=== PATIENT | female | born 1955 | race Caucasian/White ===

== ENCOUNTER → 2019-01-11 | Outpatient (CLI) | payer OTHER ==
--- NOTE | 2019-01-11 15:51 | CT ---
Procedure: CT LUNG SCREENING Exam Date: 01/11/2019 Ordering Provider: Ino Cabello Clinical Indication: HISTORY OF TOBACCO USE 80 pack years. Quit smoking 3 years ago. This patient meets eligibility criteria for low-dose CT lung cancer screening. Comparison: None. Technique: Using a multislice scanner, sequential helical axial imaging was obtained in the thorax, 2.5 mm thickness, 2.5 mm separation, from the level of the thoracic inlet through the lung bases without IV contrast. A low dose protocol was utilized: CTDI: 1.76 mGy. 120. kVp. 45 mA. 2D sagittal and coronal reconstructed images, 6.0 mm thickness, were obtained. This exam was performed according to our departmental dose optimization program which includes use of automated exposure control, adjustment of the mA and/or kV according to patient size and/or use of iterative reconstruction technique. Nodule measurements under 10 mm are given as mean value of 3 axes diameters. FINDINGS: Lungs and large airways: Multiple bilateral parenchymal blebs in a centrilobular pattern. Less prevalent in the lower lobes. Nodule 3 mm calcified subpleural posterior left apex. 4 mm groundglass density associated with the medial right horizontal fissure. Dependent atelectasis in the right base. Pleural parenchymal scarring densities abutting the left hemidiaphragm. Bilateral prominent anterior epicardial fat pads. Pleura and space: Focal pleural thickening posterior left abutting the upper lobe. No effusion or pneumothorax bilaterally. Mediastinum and malka: evaluation limited by low dose technique and lack of IV contrast. No abnormally enlarged lymph nodes or gross soft tissue masses or fluid/air. Heart and great vessels: Coronary artery calcifications. Atherosclerotic calcification descending thoracic aorta. Chest wall, lower neck, axillae: Evaluation also limited by same factors as described above. Normal size nodes. No soft tissue masses. Upper abdomen: No free air air or fluid in the included peritoneal space. No fatty stranding. Normal size and density of the adrenal glands and normal size of the spleen with calcified granulomas. Right lobe of the liver appears enlarged. Osseous structures: Evaluation limited by low dose MIP technique. Prior ACDF multiple levels. Minimal thoracic spondylosis. Minimal depression of the anterior L1 endplate. Depression of the central and anterior T11 endplate. Arthrosis of the junction of the manubrium and sternum. No lytic or blastic lesions. Minimal arthrosis right glenohumeral joint. IMPRESSION: 1. Calcified granuloma left upper lobe. Groundglass nodule associated with right horizontal fissure abutting the upper lobe. Emphysematous changes centrilobular type in more prevalent in the upper lobes than the lower lobes. No abnormal nodule. No mass. No focal infiltrate. [facility] Best Practice recommendations:. Please see below for Lung RADS category and FOLLOW-UP.* *Lung RADS category Category 1S - No nodule or definitely benign nodules (probability of malignancy less than 1%). Follow-up: Continue annual screening with Low Dose Chest CT in 12 months. 2. Enlarged liver. Consider follow-up abdominal ultrasound. Lung RADS Modifier S - Clinically Significant or Potentially Clinically Significant Findings (non lung cancer). Electronically signed by: Milo Loya MD 01/11/2019 3:48 PM [facility]
== END ==
LOC: CT 10:04
PROVIDERS: ATTEND Family Medicine
DX: Z87.891 Personal history of nicotine dependence (principal); R91.1 Solitary pulmonary nodule

== ENCOUNTER → 2020-03-19 | Outpatient (CLI) | payer OTHER ==
--- NOTE | 2020-03-20 11:09 | CT ---
Procedure: CT LUNG SCREENING Exam Date: 19 March 2020. Ordering Provider: Ino Cabello Clinical Indication: PERSONAL HISTORY OF TOBACCO USE . 4 year cigarette smoking cessation. 50 pack-years. This patient meets eligibility criteria for low-dose CT lung cancer screening. Comparison: Low-dose CT lung cancer screening examination December 2018. Technique: Using a multislice scanner, sequential helical axial imaging was obtained in the thorax, 2.5 mm thickness, 2.5 mm separation, from the level of the thoracic inlet through the lung bases without IV contrast. A low dose protocol was utilized for BMI less than 30: BMI: 29.6. CTDI: 1.76 mGy. 120. kVp. 45 mA. DLP 66 mGy-cm. 2D sagittal and coronal reconstructed images, 6.0 mm thickness, were obtained. This exam was performed according to our departmental dose optimization program which includes use of automated exposure control, adjustment of the mA and/or kV according to patient size and/or use of iterative reconstruction technique. Nodule measurements under 10 mm are given as mean value of 3 axes diameters. FINDINGS: Lungs and large airways: Interval development of density in the subpleural inferior lingula abutting the posterior major fissure with a nodular density measuring 5.2 mm on axial series 2/image 69. Also adjacent pleural parenchymal scarring. Calcified nodule posterior left apex stable. Bilateral small blebs in a centrilobular pattern more prevalent in the upper lung carney with no interval change. Tree-in-bud densities new in the posterior recesses of the bilateral lower lobes, more prominent on the left. Pleural parenchymal scarring left lower lobe. No other nodules and no masses. Pleura and space: Negative. Mediastinum and malka: evaluation limited by low dose technique and lack of IV contrast. Small lymph nodes are stable but no dominant solid mass. Heart and great vessels: Atherosclerotic calcifications in the thoracic aorta with minimal coronary artery calcification also stable. Chest wall, lower neck, axillae: Evaluation also limited by same factors as described above. Small axillary lymph nodes stable. Upper abdomen: Evaluation limited by low-dose technique. No free air or free fluid. Osseous structures: Evaluation limited by low dose MIP technique. Anterior cervical disc fusion. No compression fractures lower thoracic spine are stable. Spondylosis also mid to lower thoracic spine. Stable glenohumeral sternal and clavicular arthrosis. IMPRESSION: 1. New region of infiltrate or scarring or new 5.2 mm solid subpleural nodule lateral inferior lingula. Bibasilar new tree-in-bud densities, involving a small volume of lung, which can be seen secondary to prior viral processes, atypical bacterial or mycobacterial infection, or fungal infection. [facility] Best Practice Recommendations: please see below for Lung RADS category and FOLLOW-UP.* *Lung RADS category CATEGORY 3 - Probably benign (1-2% malignancy probability), short term follow-up suggested. NODULES: Solid nodule(s) 6mm (113.1 mm3) to less than 8mm (268.1 mm3) at baseline, or new 4mm (33.5 mm3) to under 6mm (113.1 mm3) solid nodule. Part solid nodule total diameter >= 6mm (113.1 mm3) with solid component less than 6mm, or new less than 6mm total diameter nodule] OR new <6 mm (113.1 mm3) total diameter. GGN >= 30 mm (>=37555 mm3) on baseline CT or new. FOLLOW-UP: Please return for a Low Dose Chest CT in 6 months for re-evaluation. Electronically signed by: Milo Loya MD 03/20/2020 11:08 AM CDT
== END ==
LOC: CT 14:00
PROVIDERS: ATTEND Family Medicine
DX: Z87.891 Personal history of nicotine dependence (principal); R91.8 Other nonspecific abnormal finding of lung field

== ENCOUNTER → 2020-09-05 | Outpatient (CLI) | payer OTHER ==
--- NOTE | 2020-09-06 11:06 | CT ---
EXAM DESCRIPTION: Chest W/O Low Dose CLINICAL HISTORY: FOLLOW UP COMPARISON: March 19, 2020 TECHNIQUE: Chest CT was performed without IV contrast utilizing low-dose screen technique. This exam was performed according to our departmental dose-optimization program, which includes automated exposure control, adjustment of the mA and/or kV according to patient size and/or use of iterative reconstruction technique. FINDINGS: Low-dose screen technique significantly limits evaluation of mediastinal and other soft tissues structures. No thoracic aortic aneurysm. No adenopathy. No pleural or pericardial effusion. The central airways are clear. Subtle emphysematous changes. No airspace consolidation or lung mass. Tiny calcified granuloma in the left lung apex. No additional lung nodule. Minimal subsegmental atelectasis or scarring in the lingula, improved from the prior exam. The lingular nodule seen on the prior study is no longer present. Tiny calcified splenic granuloma. Degenerative changes in the thoracic spine. Partially visualized postoperative changes in the cervical spine. IMPRESSION: Lung RADS category 1, negative exam. Calcified granuloma, but no suspicious nodule in either lung. Recommend continued annual screening with low-dose chest CT. Electronically signed by: Husam Rojas MD 09/06/2020 11:05 AM CDT
== END ==
LOC: CT 14:00
PROVIDERS: ATTEND Family Medicine
DX: J84.10 Pulmonary fibrosis, unspecified (principal); Z87.891 Personal history of nicotine dependence